=== PATIENT | female | born 1985 | race Caucasian/White ===

== ENCOUNTER 2020-07-09 20:31 | Emergency (ER) | payer MEDICAID ==
[~2020-07-09] VITALS: Ht 172.7 cm; Wt 83.5 kg
[2020-07-09 20:42] VITALS: BP 142/82
--- NOTE | 2020-07-09 20:59 | NUR ---
To ER bed 12.
[2020-07-09 21:09] LABS: APPEARANCE,URINE CLEAR (CLEAR); BILIRUBIN,URINE NEGATIVE (NEGATIVE); BLOOD, URINE 3+ (NEGATIVE); COLOR,URINE YELLOW (YELLOW); LEUKOCYTE ESTERASE ,URINE 2+ (NEGATIVE); NITRITE, URINE NEGATIVE (NEGATIVE); PH,URINE 6.5 (5.0-9.0); UGLUCOSE NEGATIVE (NEGATIVE)
--- NOTE | 2020-07-09 21:10 | NUR ---
Dr. Schulz with pt for MSE.
--- NOTE | 2020-07-09 21:12 | NUR ---
see complete assessment
[2020-07-09 22:03] LABS: RBC,URINE 11-20 (MOD) /HPF (0-5); WBC,URINE 20-60 /HPF (0-5)
[2020-07-09] MEDS ORDERED: PHENAZOPYRIDINE 100 MG TAB PO ONE (22:20)
[2020-07-09] MEDS ORDERED: KETOROLAC 30 MG/ML VIAL IM ONE (22:20)
--- NOTE | 2020-07-09 22:20 | NUR ---
US at bedside
[2020-07-09 22:21] VITALS: BP 136/72
--- NOTE | 2020-07-09 23:00 | NUR ---
meds given per MD orders.
[2020-07-09] MEDS ORDERED: PYR100 PO (23:22)
[2020-07-09] MEDS ORDERED: NAPR-1704 PO (23:22)
[2020-07-09] MEDS ORDERED: NITR100C7 PO (23:22)
--- NOTE | 2020-07-09 23:34 | NUR ---
Patient discharged with v/s stable. Written and verbal after care instructions given and explained. Patient alert, oriented and verbalized understanding of instructions. Ambulatory with steady gait. All questions addressed prior to discharge. ID band removed. Patient advised to follow up with PMD. Rx of NAPROSYN, PYRIDIUM, AND MACROBID given. Patient educated on indication of medication including possible reaction and side effects. Opportunity to ask questions provided and answered.
== END 2020-07-09 23:34 | disposition home or self-care (01) ==
LOC: MED 20:31
DX: N39.0 Urinary tract infection, site not specified (principal); Z79.899 Other long term (current) drug therapy; Z98.890 Other specified postprocedural states
CPT/HCPCS: 76856; 81001; 81025; 87086; 96372; 99284; J1885

== ENCOUNTER 2020-08-17 17:34 | Inpatient (IN) | payer MEDICAID ==
[~2020-08-17] VITALS: Ht 167.6 cm; Wt 76.2 kg
[~2020-08-17 17:34] MED LIST: NAPR-1704 PO; NITR100C7 PO; PYR100 PO
[2020-08-17 17:49] VITALS: BP 132/86
--- NOTE | 2020-08-17 17:53 | NUR ---
Pt ambulatory to ER bed 11 with a steady gait.
--- NOTE | 2020-08-17 18:19 | NUR ---
34 Y/O F BIB SELF FROM HOME, C/O PELVIC PAIN 8/10 PRESSURE THAT RADIATES DOWN TO L LEG CAUSING NUMBNESS, ABD CRAMPING SINCE 08/13/20. ALSO C/O DYSURIA, INCREASED FREQUENCY, RETENTION, AND CONSTIPATION. DENIES N/V/D. PMH: DENIES NKA MED: NONE
[2020-08-17] MEDS ORDERED: MORPHINE SULFATE 4 MG/ML SYR IVP ONE (18:20)
[2020-08-17] MEDS ORDERED: ONDANSETRON 4 MG/2 ML VIAL IVP ONE (18:20)
[2020-08-17] MEDS ORDERED: NACL 0.9% 1,000 ML IV SCH (18:20)
--- NOTE | 2020-08-17 18:27 | NUR ---
hvac residential service technician at pt bedside.
--- NOTE | 2020-08-17 18:40 | NUR ---
WHITNEY RN, Female Liquor Commissioner accompanied female patient for Pelvic Exam. COLLECTED WET MOUNT AND CULTURES. GAVE TO [facility]
[2020-08-17 18:47] LABS: BASOPHILS # (AUTO) 0.1 K/uL (0.00-0.22); BASOPHILS % (AUTO) 0.6 % (0.0-2.0); EOSINOPHILS # (AUTO) 0.1 K/uL (0-0.4); HEMATOCRIT 41.2 % (36-48); HEMOGLOBIN 13.8 g/dL (12.0-16.0); LYMPHOCYTES # (AUTO) 3.6 K/uL (2.5-16.5); MEAN CORPUSCULAR HEMOGLOBIN 29 pg (27-31); MEAN CORPUSCULAR HGB CONC 34 g/dL (33-37); MEAN CORPUSCULAR VOLUME 87.3 fL (80-94); MONOCYTES # (AUTO) 0.7 K/uL (0.8-1.0); MONOCYTES % (AUTO) 5.4 % (1.7-9.3); NEUTROPHILS # (AUTO) 7.6 K/uL (1.8-7.7); PLATELET COUNT (AUTO) 280 K/uL (140-450); RED BLOOD CELL COUNT(AUTO) 4.71 MIL/uL (4.20-5.40); RED CELL DISTRIBUTION WIDTH 13.8 % (11.6-13.7); WHITE BLOOD COUNT (AUTO) 12.1 K/uL (4.8-10.8)
[2020-08-17 19:08] LABS: ALBUMIN 4.2 g/dL (3.4-5.0); ANION GAP 14.8 (8-16); CARBON DIOXIDE 24.7 mmol/L (21-32); CREATININE 1.1 mg/dL (0.6-1.3); POTASSIUM 3.5 mmol/L (3.5-5.1); TOTAL BILIRUBIN 0.2 mg/dL (0.0-1.0)
--- NOTE | 2020-08-17 19:11 | NUR ---
PT TAKEN TO CT VIA W/C
--- NOTE | 2020-08-17 19:15 | NUR ---
REPORT GIVEN TO YOLY ESPINO. TRANSFER OF CARE GIVEN
--- NOTE | 2020-08-17 19:18 | NUR ---
Gram stain lab results to be sent to [facility] per YOLY Miles and laborer construction or leak gang.
--- NOTE | 2020-08-17 19:23 | NUR ---
Report received from Luli FREDERICK for continuity of care.
[2020-08-17 19:53] LABS: APPEARANCE,URINE CLEAR (CLEAR); BILIRUBIN,URINE NEGATIVE (NEGATIVE); BLOOD, URINE TRACE-L (NEGATIVE); COLOR,URINE YELLOW (YELLOW); LEUKOCYTE ESTERASE ,URINE NEGATIVE (NEGATIVE); NITRITE, URINE NEGATIVE (NEGATIVE); UGLUCOSE NEGATIVE (NEGATIVE)
[2020-08-17 20:14] LABS: RBC,URINE 0-5 /HPF (0-5); WBC,URINE 0-5 /HPF (0-5)
--- NOTE | 2020-08-17 20:21 | NUR ---
INFORMED DR. FLORES THAT ROCEPHIN GIVEN WITH NS INSTEAD OF D5 5% D/T NO STOCK. HE GAVE VERBAL ORDER TO MIX THE ROCEPHIN MEDICATION WITH NS.
[2020-08-17] MEDS ORDERED: cefTRIAXone 1,000 MG VIAL ONE (20:56)
[2020-08-17] MEDS ORDERED: SODIUM PHOS / POTASSIUM PHOS 1 PKT PDR PO PRN (22:35)
[2020-08-17] MEDS ORDERED: MORPHINE SULFATE 2 MG/ML SYR IVP PRN (22:35)
[2020-08-17] MEDS ORDERED: MAG SULF 2000 MG/WATER PREMIX 50 ML IV PRN (22:35)
[2020-08-17] MEDS ORDERED: POTASSIUM CHLORIDE 40 MEQ, LIDOCAINE MPF 1% 25 MG in NACL 0.9% 250 ML IV PRN (22:35)
[2020-08-17] MEDS ORDERED: DOCUSATE SODIUM 100 MG GELCAP PO PRN (22:35)
[2020-08-17] MEDS ORDERED: ONDANSETRON 4 MG/2 ML VIAL IM/IVP PRN (22:35)
[2020-08-17] MEDS ORDERED: ACETAMINOPHEN 325 MG TAB PO PRN (22:35)
[2020-08-17] MEDS ORDERED: HYDROcodone/APAP 5/325 MG 1 TAB TAB PO PRN (22:35)
[2020-08-17] MEDS: NACL 0.9% 1,000 ML IV SCH (22:35)
--- NOTE | 2020-08-18 | NUR ---
PATIENT RESTING WELL. APPEARS COMFORTABLE AND IN NO SIGN OF ANY DISTRESS.
[2020-08-18 01:12] LABS: MAGNESIUM 2.2 mg/dL (1.8-2.4); PHOSPHORUS 3.4 mg/dL (2.5-4.9)
--- NOTE | 2020-08-18 06:15 | NUR ---
COLLECTED AM LABS. PT AWAKE, ABLE TO MAKE NEEDS KNOWN. DENIES ANY PAIN OR DISCOMFORT AT THIS TIME. SLEPT WELL. WILL CONTINUE TO MONITOR.
--- NOTE | 2020-08-18 07:13 | NUR ---
REPORT GIVEN TO MITZY FREDERICK FOR CONTINUITY OF CARE.
--- NOTE | 2020-08-18 07:24 | NUR ---
Patient resting at this time in a position of comfort, placed on bedside teletypesetter monitor.
[2020-08-18 07:38] LABS: BASOPHILS # (AUTO) 0.1 K/uL (0.00-0.22); BASOPHILS % (AUTO) 0.7 % (0.0-2.0); EOSINOPHILS # (AUTO) 0.1 K/uL (0-0.4); EOSINOPHILS % (AUTO) 0.9 % (0.0-4.0); HEMATOCRIT 40.6 % (36-48); HEMOGLOBIN 13.6 g/dL (12.0-16.0); LYMPHOCYTES # (AUTO) 4.3 K/uL (2.5-16.5); LYMPHOCYTES % (AUTO) 36.5 % (20.5-51.1); MEAN CORPUSCULAR HEMOGLOBIN 29 pg (27-31); MEAN CORPUSCULAR HGB CONC 33 g/dL (33-37); MEAN CORPUSCULAR VOLUME 87.8 fL (80-94); MONOCYTES # (AUTO) 0.8 K/uL (0.8-1.0); MONOCYTES % (AUTO) 6.9 % (1.7-9.3); NEUTROPHILS # (AUTO) 6.5 K/uL (1.8-7.7); PLATELET COUNT (AUTO) 197 K/uL (140-450); RED BLOOD CELL COUNT(AUTO) 4.62 MIL/uL (4.20-5.40); RED CELL DISTRIBUTION WIDTH 13.9 % (11.6-13.7); WHITE BLOOD COUNT (AUTO) 11.9 K/uL (4.8-10.8)
[2020-08-18 07:42] LABS: ANION GAP 11.2 (8-16); CARBON DIOXIDE 23.8 mmol/L (21-32); CREATININE 0.7 mg/dL (0.6-1.3)
--- NOTE | 2020-08-18 07:53 | NUR ---
Patient will be admitted to care of Dr. Dao. Admited to TELE. Will go to room 112A. Belongings list completed. Report to [place].
--- NOTE | 2020-08-18 08:30 | NUR ---
RECEIVED REPORT FROM ER NURSE.ADMITTED 34YO FEMALE FROM HOME WITH CC OF PELVIC PAIN FOR 6 MONTHS. ADMITTING DX PID AND IUD INFECTION. , AOX4, ABLE TO MAKE NEEDS KNOWN. NO C/O PAIN AT THIS TIME, NO SOB, ON ROOM AIR, SR ON MONITOR. SKIN IS INTACT, WITH LAC 20G RUNNING NS AT 60CC/HR. ON CARDIAC DIET. AMBULATORY. BOWEL AND BLADDER CONTINENT. SAFETY AND FALLS PRECAUTIONS IN PLACE. CALL LIGHT WITHIN REACH. WILL CONTINUE TO MONITOR
[2020-08-18 10:38] VITALS: BP 109/64
--- NOTE | 2020-08-18 11:09 | NUR ---
PT AWAKE IN BED. NO RESPIRATORY DISTRESS, NO C/O PAIN
--- NOTE | 2020-08-18 13:10 | NUR ---
PT RESTING IN BED. NO APPARENT DISTRESS, NO SOB, NO C/O PAIN
--- NOTE | 2020-08-18 15:20 | NUR ---
US TECH AT BEDSIDE FOR US ABD LIMITED
[2020-08-18] MEDS: NACL 0.9% 1,000 ML IV SCH (15:51)
[2020-08-18 16:00] VITALS: BP 109/64
--- NOTE | 2020-08-18 16:42 | NUR ---
FAMILY AT BEDSIDE. NO COMPLAINTS AT THIS TIME
--- NOTE | 2020-08-18 18:55 | NUR ---
PT STATED THAT SHE WANT TO GO AMA. PAGED DR HILLIARD TO TALK TO PT
--- NOTE | 2020-08-18 19:30 | NUR ---
RECEIVED REPORT FROM DAY RN REGARDING THE PATIENT FOR CONTINUITY OF CARE. PATIENT A/A/OX4,SITTING UP IN BED WATCHING TV, AT THE BEDSIDE. NO SIGN AND SYMPTOMS OF DISTRESS NOTED AT THIS TIME. NO COMPLAIN AT THIS TIME. IVF INFUSING ORDERED. PER DAY RN WANTED TO SIGN AGAINST MEDICAL ADVICE AND DR HILLIARD ALREADY INFORMED PER DAY RN RIKKI. CALL LIGHT WITHIN REACH. WILL CONTINUE POC AND MONITORING.
[2020-08-18 20:00] VITALS: BP 114/75
[2020-08-18] MEDS ORDERED: DOXY100C9 PO (20:22)
[2020-08-18] MEDS ORDERED: METR500T1 PO (20:22)
--- NOTE | 2020-08-18 20:30 | NUR ---
PT WANTED TO SIGN AMA PER REPORT FROM DAY SHIFT RN. DR HILLIARD MADE AWARE AND CAME TO THE PATIENT ROOM AND SPOKE TO THE PATIENT.
--- NOTE | 2020-08-18 20:40 | NUR ---
PATIENT SIGNED THE PAPER AND LEFT AGAINST MEDICAL ADVICE. PATIENT LEFT THE UNIT IN STABLE CONDITION A/A/OX4, ACCOMPANIED BY THE . DC/D THE IV ON THE LEFT AC, CANNULA INTACT. NO BLEEDING AND HEMATOMA NOTED. ALL BELONGINGS RETURNED.
== END 2020-08-18 20:45 | disposition left against medical advice (07) | DRG 466 ==
LOC: MED 17:34 → MTU 21:30
PROVIDERS: ADMIT Hospitalist; ATTEND Hospitalist
DX: T83.69XA Infection and inflammatory reaction due to other prosthetic device, implant and graft in genital tract, initial encounter (principal); K80.20 Calculus of gallbladder without cholecystitis without obstruction; N73.9 Female pelvic inflammatory disease, unspecified; Z53.29 Procedure and treatment not carried out because of patient's decision for other reasons; Y83.8 Other surgical procedures as the cause of abnormal reaction of the patient, or of later complication, without mention of misadventure at the time of the procedure; Y92.89 Other specified places as the place of occurrence of the external cause
CPT/HCPCS: 36415; 76705; 80048; 80053; 81001; 83690; 83735; 84100; 85025; 87040; 87070; 87081; 87110; 87205; 87210; 87299; 96365; 96375; 99285; J0696; J2270; J2405; J7060